=== PATIENT | male | born 1985 | race Caucasian/White ===

== ENCOUNTER → 2024-05-18 15:34 | Outpatient (CLI) | payer BC, SELFPAY ==
--- NOTE | 2024-05-18 15:37 | DI.MRI.S_ITS ---
PROCEDURE: MR SHOULDER RT WO CON INDICATIONS: pain, joint,shoulder,right TECHNIQUE: Noncontrast oblique coronal T2 fast spin echo with fat saturation, oblique sagittal T1 spin echo and T2 fast spin echo with fat saturation, axial T1 spin echo and T2 fast spin echo with fat saturation through the shoulder. COMPARISON: [facility], [place], XR SHOULDER 2+ VIEWS RIGHT, 05/17/2024, 8:37. FINDINGS: Image quality: Diagnostic Rotator cuff: Bulk: No significant atrophy Teres minor: Intact Supraspinatus: [id number] grade articular surface tears at the footplate and mid tendon. Mild background tendinopathy. There also small interstitial tears at the muscle tendon junction Infraspinatus: Low-grade articular sided tears at the footplate. Mild background tendinopathy Subscapularis: Moderate thickening and tendinopathy Bones and bursae: GH joint: Mild arthrosis with small trace effusion AC joint: Moderate arthrosis Humeral head: No acute fracture Scapula and acromion: No acute fracture Bursa: No significant fluid Capsule: Labrum: There is a anterior superior labral tear involving the biceps anchor (7/10). Long head biceps tendon: Mild intra-articular tendinopathy IGHL: Intact Rotator interval: Mild edema is seen Soft tissues: There is mild edema within the deltoid. IMPRESSION: [id number] grade tendinopathy and partial-thickness rotator cuff tears described above. No full-thickness defect. Mild glenohumeral arthrosis with small effusion. Moderate acromioclavicular arthrosis. Suspected anterior superior labral tear involving the biceps anchor. Mild adjacent long head biceps tendinopathy. Mild edema within the deltoid, possibly a contusion. Correlate with any recent immunizations as well No fluid collection. Dictated by: Royal Ibarra M.D. on 05/19/2024 at 9:38 Approved by: Royal Ibarra M.D. on 05/19/2024 at 9:42
== END ==
PROVIDERS: PCP Family Medicine; Referring Provider Orthopaedic Surgery; Visit Provider Orthopaedic Surgery
DX: M19.011 Primary osteoarthritis, right shoulder (principal); M75.111 Incomplete rotator cuff tear or rupture of right shoulder, not specified as traumatic; M25.511 Pain in right shoulder; M25.411 Effusion, right shoulder
CPT/HCPCS: 73221